=== PATIENT | female | born 1970 | race African-American/Black ===

== ENCOUNTER 2017-05-07 11:08 | Emergency (ER) | payer MEDICAID, OTHER ==
[~2017-05-07] VITALS: Ht 157.5 cm; Wt 59.0 kg
[2017-05-07 12:10] LABS: CHLORIDE 106 mEq/L (98-107)
[2017-05-07 12:16] LABS: CARBON DIOXIDE 26 mEq/L (21-32)
[2017-05-07 12:19] LABS: TROPONIN I < 0.02 ng/mL (0.00-0.04)
[2017-05-07 12:21] LABS: BASOPHILS % 1.5 % (0.0-2.0); EOSINOPHILS % 1.3 % (0.0-5.0); HEMATOCRIT. 35.6 % (36.0-48.0); HEMOGLOBIN. 11.8 g/dL (12.0-16.0); LYMPHOCYTES % 36.5 % (20.0-50.0); MEAN CORPUSCULAR VOLUME 96.6 fL (81.0-99.0); MEAN PLATELET VOLUME 8.6 fl (7.4-10.4); NEUTROPHILS % 51.7 % (40.0-76.0); PLATELET 319 x1000/uL (130-400); RED BLOOD CELL COUNT 3.68 mill/uL (4.2-5.4); RED CELL DISTRIBUTION WIDTH 15.4 % (11.6-14.6)
[2017-05-07 14:12] VITALS: BP 146/88
== END 2017-05-07 14:25 | disposition home or self-care (01) ==
LOC: ER 11:08
DX: R07.9 Chest pain, unspecified (principal); I10 Essential (primary) hypertension; E16.2 Hypoglycemia, unspecified; F12.10 Cannabis abuse, uncomplicated; F17.290 Nicotine dependence, other tobacco product, uncomplicated; Z90.710 Acquired absence of both cervix and uterus; Z98.51 Tubal ligation status
CPT/HCPCS: 36415; 71010; 80053; 84484; 85025; 93005; 99285

== ENCOUNTER 2020-04-12 16:44 | Emergency (ER) | payer MEDICAID ==
[~2020-04-12] VITALS: Ht 165.1 cm; Wt 50.0 kg
[2020-04-12] MEDS ORDERED: SODIUM CHLORIDE 0.9% 1,000 ML IV ONE (17:39)
[2020-04-12 18:33] LABS: BASOPHILS % 0.8 % (0.0-2.0); EOSINOPHILS % 0.3 % (0.0-5.0); HEMATOCRIT. 39.1 % (36.0-48.0); HEMOGLOBIN. 12.9 g/dL (12.0-16.0); LYMPHOCYTES % 16.7 % (20.0-50.0); MEAN CORPUSCULAR HEMOGLOBIN 33.9 pg (28.0-32.0); MEAN CORPUSCULAR VOLUME 102.6 fL (81.0-99.0); MEAN PLATELET VOLUME 8.8 fl (7.4-10.4); MONOCYTES % 9.2 % (2.0-8.0); PLATELET 387 x1000/uL (130-400); RED BLOOD CELL COUNT 3.81 mill/uL (4.2-5.4); RED CELL DISTRIBUTION WIDTH 21.1 % (11.6-14.6)
[2020-04-12 18:37] LABS: CLARITY URINE TURBID (CLEAR); COLOR URINE RED (YELLOW); KETONES URINE 1+ (NEGATIVE); LEUKOCYTE ESTERASE URINE 1+ (NEGATIVE); NITRITE URINE POSITIVE (NEGATIVE); OCCULT BLOOD URINE NEGATIVE (NEGATIVE); PROTEIN URINE 1+ (NEGATIVE); SPECIFIC GRAVITY URINE 1.023 (1.005-1.030)
[2020-04-12 18:44] LABS: CHLORIDE 94 mEq/L (98-107)
[2020-04-12] MEDS ORDERED: CEFTRIAXONE 1 G PREMIX 50 ML IV ONE (18:45)
[2020-04-12 18:48] LABS: PROTHROMBIN TIME 10.5 sec (9.6-11.0)
[2020-04-12 19:44] VITALS: BP 129/97
== END 2020-04-12 20:29 | disposition left against medical advice (07) ==
LOC: ER 16:44 → CANBEDREQ 20:52
DX: N17.9 Acute kidney failure, unspecified (principal); N39.0 Urinary tract infection, site not specified; I10 Essential (primary) hypertension; Z90.710 Acquired absence of both cervix and uterus; Z98.51 Tubal ligation status
CPT/HCPCS: 36415; 71045; 80053; 81003; 83690; 83880; 84484; 85025; 85610; 96361; 96365; 99284; J0696; J7030

== ENCOUNTER 2020-04-13 17:47 | Inpatient (IN) | payer MEDICAID ==
[~2020-04-13] VITALS: Ht 154.9 cm; Wt 52.6 kg
[2020-04-13] MEDS ORDERED: SODIUM CHLORIDE 0.9% 1,000 ML IV ONE (18:52)
[2020-04-13 19:23] LABS: BASOPHILS % 0.6 % (0.0-2.0); EOSINOPHILS % 0.7 % (0.0-5.0); HEMATOCRIT. 32.1 % (36.0-48.0); HEMOGLOBIN. 10.8 g/dL (12.0-16.0); LYMPHOCYTES % 11.6 % (20.0-50.0); MEAN CORPUSCULAR HEMOGLOBIN 34.8 pg (28.0-32.0); MEAN PLATELET VOLUME 9.1 fl (7.4-10.4); MONOCYTES % 10.8 % (2.0-8.0); NEUTROPHILS % 76.3 % (40.0-76.0); PLATELET 350 x1000/uL (130-400); RED BLOOD CELL COUNT 3.09 mill/uL (4.2-5.4); RED CELL DISTRIBUTION WIDTH 20.8 % (11.6-14.6)
[2020-04-13 19:29] LABS: CHLORIDE 96 mEq/L (98-107)
[2020-04-13] MEDS ORDERED: CEFTRIAXONE 1 G PREMIX 50 ML IV SCH (20:00)
[2020-04-13] MEDS ORDERED: HYDROCODONE/ACETAMINOPHEN 5/325MG TABLET PO PRN (20:00)
[2020-04-13] MEDS ORDERED: CEFTRIAXONE 1 G PREMIX 50 ML IV ONE (20:00)
[2020-04-13] MEDS ORDERED: ONDANSETRON HCL 4MG/2ML INJ IV PRN (20:00)
[2020-04-13] MEDS ORDERED: ACETAMINOPHEN 325MG TABLET PO PRN (20:00)
[2020-04-13] MEDS ORDERED: IPRATROPIUM/ALBUTEROL 0.5-3(2.5)MG/3ML NEB NEB PRN (20:00)
[2020-04-13] MEDS ORDERED: CLONIDINE 0.1MG TABLET PO PRN (20:00)
[2020-04-13 21:09] LABS: CLARITY URINE CLOUDY (CLEAR); COLOR URINE DK YELLOW (YELLOW); KETONES URINE TRACE (NEGATIVE); LEUKOCYTE ESTERASE URINE NEGATIVE (NEGATIVE); NITRITE URINE NEGATIVE (NEGATIVE); OCCULT BLOOD URINE NEGATIVE (NEGATIVE); PROTEIN URINE 1+ (NEGATIVE); SPECIFIC GRAVITY URINE 1.018 (1.005-1.030)
[2020-04-13 21:20] LABS: *AMPHETAMINES SCREEN URINE NEGATIVE (NEGATIVE); *BARBITURATES SCREEN URINE NEGATIVE (NEGATIVE)
[2020-04-13 21:21] LABS: *BENZODIAZEPINES SCREEN URINE NEGATIVE (NEGATIVE); *COCAINE SCREEN URINE NEGATIVE (NEGATIVE); CANNABINOID URINE SCREEN PRESUMTIVE POSITIVE (NEGATIVE); METHADONE URINE SCREEN NEGATIVE (NEGATIVE); OPIATES URINE SCREEN NEGATIVE (NEGATIVE); PHENCYCLIDINE URINE SCREEN NEGATIVE (NEGATIVE)
[2020-04-13 23:01] VITALS: BP 138/55
[2020-04-13 23:48] VITALS: BP 138/85
[2020-04-14 00:35] LABS: CHLORIDE 99 mEq/L (98-107)
[2020-04-14 00:38] LABS: ETHANOL BLOOD < 10 mg/dL
[2020-04-14 00:43] LABS: CREATINE KINASE 60 IU/L (26-192)
[2020-04-14 00:45] LABS: CREATINE KINASE MB FRACTION 5.1 ng/mL (0.5-3.6)
[2020-04-14] MEDS: SODIUM CHLORIDE 0.9% 1,000 ML IV SCH ×3 (01:13→21:25)
[2020-04-14] MEDS: HEPARIN 5000 UNITS/ML VIAL SUBCUT SCH ×3 (01:21→20:59)
[2020-04-14 01:42] LABS: HEPATITIS B SURFACE ANTIGEN NEGATIVE
[2020-04-14 01:44] LABS: VITAMIN B12 SERUM 1407 pg/mL (211-911)
[2020-04-14 02:11] LABS: HEPATITIS A AB IGM NEGATIVE (NEGATIVE)
[2020-04-14 04:00] VITALS: BP 108/78
[2020-04-14] MEDS ORDERED: CYAN-33 PO (04:10)
[2020-04-14] MEDS ORDERED: FERR324T17 GT (04:10)
[2020-04-14] MEDS ORDERED: ASPI-1497 PO (04:10)
[2020-04-14] MEDS ORDERED: FOLI0.4T2 MT (04:10)
[2020-04-14] MEDS ORDERED: DOCU100T PO (04:10)
[2020-04-14] MEDS ORDERED: CALC-61 MT (04:10)
[2020-04-14] MEDS ORDERED: BENA10TA74 PO (04:10)
[2020-04-14 07:04] LABS: BASOPHILS % 0.9 % (0.0-2.0); EOSINOPHILS % 1.1 % (0.0-5.0); HEMATOCRIT. 28.9 % (36.0-48.0); HEMOGLOBIN. 9.6 g/dL (12.0-16.0); LYMPHOCYTES % 18.5 % (20.0-50.0); MEAN CORPUSCULAR HEMOGLOBIN 34.4 pg (28.0-32.0); MEAN CORPUSCULAR VOLUME 103.8 fL (81.0-99.0); MONOCYTES % 14.6 % (2.0-8.0); NEUTROPHILS % 64.9 % (40.0-76.0); PLATELET 295 x1000/uL (130-400); RED BLOOD CELL COUNT 2.78 mill/uL (4.2-5.4)
[2020-04-14 07:25] LABS: LDL CHOLESTEROL 42 mg/dL (5-100)
[2020-04-14 07:26] LABS: CREATINE KINASE 52 IU/L (26-192)
[2020-04-14 07:27] LABS: HDL CHOLESTEROL 92 mg/dL (40-59)
[2020-04-14 07:29] LABS: CREATINE KINASE MB FRACTION 3.9 ng/mL (0.5-3.6)
[2020-04-14 07:32] VITALS: BP 113/61
[2020-04-14] MEDS: MULTIVITAMINS,THER W-MINERALS TABLET PO SCH (08:46)
[2020-04-14] MEDS: THIAMINE HCL 100MG TABLET PO SCH (08:46)
[2020-04-14] MEDS: FOLIC ACID 1MG TABLET PO SCH (08:47)
[2020-04-14 11:38] VITALS: BP 129/67
[2020-04-14] MEDS ORDERED: CEFTRIAXONE 1,000 MG in DEXTROSE 5% WATER 50 ML IV SCH ×4 (14:00)
[2020-04-14 16:00] VITALS: BP 102/57
[2020-04-14] MEDS ORDERED: POTASSIUM CHLORIDE 20MEQ TABLET SR PO NR (16:58)
[2020-04-14 20:00] VITALS: BP 118/66
[2020-04-15] VITALS: BP 101/71
[2020-04-15 04:00] VITALS: BP 103/64
[2020-04-15 07:19] LABS: BASOPHILS % 0.9 % (0.0-2.0); EOSINOPHILS % 2.4 % (0.0-5.0); HEMATOCRIT. 28.9 % (36.0-48.0); HEMOGLOBIN. 9.3 g/dL (12.0-16.0); LYMPHOCYTES % 21.1 % (20.0-50.0); MEAN CORPUSCULAR HEMOGLOBIN 33.8 pg (28.0-32.0); MEAN CORPUSCULAR VOLUME 104.8 fL (81.0-99.0); MEAN PLATELET VOLUME 8.9 fl (7.4-10.4); MONOCYTES % 14.5 % (2.0-8.0); NEUTROPHILS % 61.1 % (40.0-76.0); PLATELET 326 x1000/uL (130-400); RED BLOOD CELL COUNT 2.76 mill/uL (4.2-5.4); RED CELL DISTRIBUTION WIDTH 20.7 % (11.6-14.6)
[2020-04-15 07:37] LABS: CHLORIDE 107 mEq/L (98-107)
[2020-04-15 07:45] LABS: PHOSPHORUS 2.9 mg/dL (2.5-4.9); TOTAL IRON BINDING CAPACITY 298 ug/dL (250-450)
[2020-04-15 07:47] LABS: CREATINE KINASE 35 IU/L (26-192)
[2020-04-15 08:00] VITALS: BP 145/88
[2020-04-15] MEDS: MULTIVITAMINS,THER W-MINERALS TABLET PO SCH (08:51)
[2020-04-15] MEDS: THIAMINE HCL 100MG TABLET PO SCH (08:51)
[2020-04-15] MEDS: FOLIC ACID 1MG TABLET PO SCH (08:51)
[2020-04-15] MEDS: HEPARIN 5000 UNITS/ML VIAL SUBCUT SCH ×2 (08:52→08:57)
[2020-04-15 12:00] VITALS: BP 143/86
[2020-04-15] MEDS: SODIUM CHLORIDE 0.9% 1,000 ML IV SCH (12:00)
[2020-04-15] MEDS ORDERED: IRON SUCROSE COMPLEX 100 MG/5 ML ML IV SCH (14:00)
[2020-04-15 15:00] VITALS: BP 131/80
[2020-04-16 05:09] LABS: HIV SCREEN 4G Non Reactive (Non Reactive)
== END 2020-04-15 15:40 | disposition home or self-care (01) | DRG 425 ==
LOC: ER 17:47 → 5WST 20:00 → EDBEDREQTM 20:03 → EDBEDREQ 20:03 → ENRESERV 22:01
PROVIDERS: ADMIT Internal Medicine; ATTEND Internal Medicine
DX: E87.6 Hypokalemia (principal); E87.1 Hypo-osmolality and hyponatremia; N17.0 Acute kidney failure with tubular necrosis; K44.9 Diaphragmatic hernia without obstruction or gangrene; Z90.710 Acquired absence of both cervix and uterus; D53.9 Nutritional anemia, unspecified; E27.9 Disorder of adrenal gland, unspecified; E87.2 Acidosis; I10 Essential (primary) hypertension; R74.0 Nonspecific elevation of levels of transaminase and lactic acid dehydrogenase [LDH]; K76.9 Liver disease, unspecified; D35.02 Benign neoplasm of left adrenal gland; Z79.899 Other long term (current) drug therapy; Z82.49 Family history of ischemic heart disease and other diseases of the circulatory system
CPT/HCPCS: 36415; 71045; 74176; 76770; 80048; 80053; 80061; 80305; 80320; 81003; 82550; 82553; 82607; 82728; 82746; 83540; 83550; 83735; 84100; 84443; 84484; 85025; 86705; 86709; 86803; 87340; 87389; 93005; 96365; 99285; J0696; J1644; J7030; J7060; G0480

== ENCOUNTER 2021-12-29 21:53 | Emergency (ER) | payer MEDICAID, OTHER ==
[~2021-12-29] VITALS: Ht 165.1 cm; Wt 63.0 kg
[~2021-12-29 21:53] MED LIST: ASPI-1497 PO; CYAN-33 PO; DOCU100T PO; FERR324T17 GT; FOLI0.4T6 MT; [UNRECOGNIZED DRUG - CODE] MT
[2021-12-29] MEDS ORDERED: ACETAMINOPHEN 325MG TABLET PO ONE (23:45)
[2021-12-30] MEDS ORDERED: TOPUD MT (01:12)
[2021-12-30 01:35] VITALS: BP 156/95
== END 2021-12-30 01:37 | disposition home or self-care (01) ==
LOC: ER 21:53
DX: S09.8XXA Other specified injuries of head, initial encounter (principal); F07.81 Postconcussional syndrome; I10 Essential (primary) hypertension; Z79.899 Other long term (current) drug therapy; W18.39XA Other fall on same level, initial encounter; Y93.89 Activity, other specified; Y92.89 Other specified places as the place of occurrence of the external cause; Y99.8 Other external cause status
CPT/HCPCS: 99284

== ENCOUNTER 2022-09-12 12:47 | Emergency (ER) | payer MEDICAID, OTHER ==
[~2022-09-12] VITALS: Ht 157.5 cm; Wt 50.0 kg
[~2022-09-12 12:47] MED LIST changes: +TOPUD MT
[2022-09-12] MEDS ORDERED: SODIUM CHLORIDE 0.9% 1,000 ML IV ONE ×2 (13:00→15:00)
[2022-09-12 14:26] LABS: BASOPHILS % 0.7 % (0.0-2.0); HEMATOCRIT. 23.5 % (36.0-48.0); LYMPHOCYTES % 12.3 % (20.0-50.0); MEAN CORPUSCULAR HEMOGLOBIN 30.5 pg (28.0-32.0); MEAN CORPUSCULAR VOLUME 89.3 fL (81.0-99.0); MEAN PLATELET VOLUME 8.9 fl (7.4-10.4); MONOCYTES % 7.1 % (2.0-8.0); NEUTROPHILS % 79.9 % (40.0-76.0); PLATELET 339 x1000/uL (130-400); RED BLOOD CELL COUNT 2.63 mill/uL (4.2-5.4); RED CELL DISTRIBUTION WIDTH 17.3 % (11.6-14.6)
[2022-09-12 14:39] LABS: CHLORIDE 66 mEq/L (98-107)
[2022-09-12 14:48] LABS: ETHANOL BLOOD < 10 mg/dL
[2022-09-12 16:52] VITALS: BP 135/65
== END 2022-09-12 17:03 | disposition short-term general hospital (02) ==
LOC: ER 12:59
DX: R55 Syncope and collapse (principal); E87.1 Hypo-osmolality and hyponatremia; R00.0 Tachycardia, unspecified; I45.81 Long QT syndrome
CPT/HCPCS: 36415; 71045; 80053; 80320; 83690; 85025; 93005; 96360; 96361; 99291; J7030; Z7610; G0480

== ENCOUNTER 2022-10-19 07:14 | Emergency (ER) | payer OTHER ==
[~2022-10-19] VITALS: Ht 165.1 cm; Wt 50.0 kg
[2022-10-19] MEDS ORDERED: ONDANSETRON HCL 4MG/2ML INJ IV SCH (09:48)
[2022-10-19] MEDS ORDERED: MORPHINE SULFATE 4 MG/ML CPJ (NOT FOR IM USE) IV NR (10:00)
[2022-10-19] MEDS: SODIUM CHLORIDE 0.9% 1,000 ML IV SCH ×2 (10:00→13:22)
[2022-10-19] MEDS ORDERED: PANTOPRAZOLE SODIUM 40 MG/VIAL IV ONE (10:45)
[2022-10-19 11:11] LABS: BASOPHILS % 0.4 % (0.0-2.0); EOSINOPHILS % 0.1 % (0.0-5.0); HEMATOCRIT. 38.1 % (36.0-48.0); HEMOGLOBIN. 12.6 g/dL (12.0-16.0); MEAN CORPUSCULAR HEMOGLOBIN 29.9 pg (28.0-32.0); MEAN CORPUSCULAR VOLUME 90.7 fL (81.0-99.0); MEAN PLATELET VOLUME 8.2 fl (7.4-10.4); MONOCYTES % 8.1 % (2.0-8.0); NEUTROPHILS % 80.4 % (40.0-76.0); PLATELET 416 x1000/uL (130-400); RED CELL DISTRIBUTION WIDTH 16.7 % (11.6-14.6)
[2022-10-19 11:20] LABS: CHLORIDE 82 mEq/L (98-107)
[2022-10-19] MEDS ORDERED: SODIUM CHLORIDE 0.9% 1,000 ML IV ONE (14:30)
[2022-10-19 18:39] VITALS: BP 96/59
== END 2022-10-19 18:30 | disposition short-term general hospital (02) ==
LOC: ER 07:14
DX: N17.9 Acute kidney failure, unspecified (principal); E87.1 Hypo-osmolality and hyponatremia; Z20.822 Contact with and (suspected) exposure to COVID-19; Z91.81 History of falling
CPT/HCPCS: 36415; 80053; 83605; 85025; 87426; 93005; 96361; 96374; 96375; 99284; C9803; J2270; J2405; Z7610

== ENCOUNTER 2024-08-15 13:52 | Emergency (ER) | payer OTHER ==
[~2024-08-15] VITALS: Ht 165.1 cm; Wt 49.0 kg
[2024-08-15 13:56] VITALS: O2SAT 98
[2024-08-15 14:35] LABS: BASOPHILS % 0.3 % (0.0-2.0); EOSINOPHILS % 0.1 % (0.0-5.0); HEMATOCRIT. 32.5 % (36.0-48.0); HEMOGLOBIN. 10.2 g/dL (12.0-16.0); LYMPHOCYTES % 8.8 % (20.0-50.0); MEAN CORPUSCULAR HEMOGLOBIN 29.8 pg (28.0-32.0); MEAN CORPUSCULAR HGB CONC 31.3 g/dL (31.0-37.0); MEAN CORPUSCULAR VOLUME 95.2 fL (81.0-99.0); MEAN PLATELET VOLUME 8.9 fl (7.4-10.4); MONOCYTES % 9.9 % (2.0-8.0); NEUTROPHILS % 80.9 % (40.0-76.0); PLATELET 458 x1000/uL (130-400); RED BLOOD CELL COUNT 3.41 mill/uL (4.2-5.4); RED CELL DISTRIBUTION WIDTH 19.6 % (11.6-14.6); WHITE BLOOD COUNT 9.4 x1000/uL (4.5-11.0)
[2024-08-15] MEDS: METOCLOPRAMIDE HCL 10MG/2ML VIAL IV ONE (14:37)
[2024-08-15] MEDS: LACTATED RINGERS 1,000 ML IV SCH (14:37)
[2024-08-15] MEDS: KETOROLAC 15MG/ML VIAL IV ONE (14:37)
[2024-08-15 14:41] LABS: CARBON DIOXIDE 13 mEq/L (21-32); CHLORIDE 94 mEq/L (98-107); POTASSIUM 4.3 mEq/L (3.5-5.1); SODIUM 126 mEq/L (136-145)
[2024-08-15 14:47] LABS: GLUCOSE 127 mg/dL (70-105); UREA NITROGEN BLOOD 39 mg/dL (9-23)
[2024-08-15 14:48] LABS: ALANINE AMINOTRANSFERASE 10 IU/L (10-49); ALBUMIN 4.6 g/dL (3.2-4.8); ASPARTATE AMINOTRANSFERASE 45 IU/L (<34)
[2024-08-15 14:49] LABS: BILIRUBIN TOTAL 0.2 mg/dL (0.1-1.0); LACTIC ACID 2.8 mmol/L (0.4-2.0); PROTEIN TOTAL 9.2 g/dL (6.0-8.3)
[2024-08-15 14:59] LABS: CREATININE 5.1 mg/dL (0.6-1.0)
[2024-08-15] MEDS: CEFTRIAXONE 1GM/50ML 50 ML IV ONE (17:33)
[2024-08-15] MEDS ORDERED: ONDANSETRON HCL 4MG/2ML INJ IV ONE (20:45)
[2024-08-15 22:50] VITALS: BP 138/78; PULSE 97; RESP 22; O2SAT 97
== END 2024-08-15 23:33 | disposition short-term general hospital (02) ==
LOC: ER 13:59 → CANBEDREQ 17:48 → ER 23:33
DX: N17.9 Acute kidney failure, unspecified (principal); E87.1 Hypo-osmolality and hyponatremia; R11.10 Vomiting, unspecified; I95.9 Hypotension, unspecified; I10 Essential (primary) hypertension
CPT/HCPCS: 99291; 96365; 96366; 96375; 96361; 80053; 82962; 83605; 83690; 83735; 84100; 85025; 87040; 36415; 84145; 71045; 93005; J0696; J1885; J2765

== ENCOUNTER 2024-12-01 15:01 | Emergency (ER) | payer OTHER ==
[~2024-12-01] VITALS: Ht 157.5 cm; Wt 53.0 kg
[~2024-12-01 15:01] MED LIST changes: -ASPI-1497 PO; +PANT40VI IV; +SUCR1TAB PO; +THIA100T72 PO
[2024-12-01 15:08] VITALS: O2SAT 98
[2024-12-01 15:10] VITALS: BP 180/94; PULSE 97; RESP 18; TEMP 36.9; O2SAT 100
[2024-12-01 15:41] LABS: BASOPHILS % 2.5 % (0.0-2.0); EOSINOPHILS % 1.3 % (0.0-5.0); HEMATOCRIT. 32.7 % (36.0-48.0); HEMOGLOBIN. 10.5 g/dL (12.0-16.0); LYMPHOCYTES % 25.3 % (20.0-50.0); MEAN CORPUSCULAR HEMOGLOBIN 27.8 pg (28.0-32.0); MEAN CORPUSCULAR HGB CONC 31.9 g/dL (31.0-37.0); MEAN CORPUSCULAR VOLUME 86.9 fL (81.0-99.0); MEAN PLATELET VOLUME 7.3 fl (7.4-10.4); NEUTROPHILS % 64.9 % (40.0-76.0); PLATELET 393 x1000/uL (130-400); RED BLOOD CELL COUNT 3.77 mill/uL (4.2-5.4); RED CELL DISTRIBUTION WIDTH 17.7 % (11.6-14.6); WHITE BLOOD COUNT 5.1 x1000/uL (4.5-11.0)
[2024-12-01 15:47] LABS: CARBON DIOXIDE 16 mEq/L (21-32); CHLORIDE 104 mEq/L (98-107); POTASSIUM 5.1 mEq/L (3.5-5.1); SODIUM 129 mEq/L (136-145)
[2024-12-01 15:48] LABS: CALCIUM 9.5 mg/dL (8.7-10.4)
[2024-12-01 15:53] LABS: GLUCOSE 72 mg/dL (70-105); UREA NITROGEN BLOOD 21 mg/dL (9-23)
== END 2024-12-01 17:41 | disposition home or self-care (01) ==
LOC: ER 15:01
DX: I12.0 Hypertensive chronic kidney disease with stage 5 chronic kidney disease or end stage renal disease (principal); N18.6 End stage renal disease; Z91.158 Patient's noncompliance with renal dialysis for other reason; Z79.899 Other long term (current) drug therapy; Z99.2 Dependence on renal dialysis
CPT/HCPCS: 36415; 71045; 80048; 85025; 93005; 99285

== ENCOUNTER 2024-12-08 15:49 | Emergency (ER) | payer OTHER ==
[~2024-12-08] VITALS: Ht 157.5 cm; Wt 52.1 kg
[2024-12-08 15:53] VITALS: O2SAT 100
[2024-12-08 16:41] LABS: BASOPHILS % 1.2 % (0.0-2.0); EOSINOPHILS % 0.9 % (0.0-5.0); HEMATOCRIT. 32.1 % (36.0-48.0); HEMOGLOBIN. 10.2 g/dL (12.0-16.0); LYMPHOCYTES % 16.1 % (20.0-50.0); MEAN CORPUSCULAR HEMOGLOBIN 27.8 pg (28.0-32.0); MEAN CORPUSCULAR HGB CONC 31.9 g/dL (31.0-37.0); MEAN CORPUSCULAR VOLUME 87.2 fL (81.0-99.0); MEAN PLATELET VOLUME 7.7 fl (7.4-10.4); MONOCYTES % 9.1 % (2.0-8.0); NEUTROPHILS % 72.7 % (40.0-76.0); PLATELET 363 x1000/uL (130-400); RED BLOOD CELL COUNT 3.69 mill/uL (4.2-5.4); RED CELL DISTRIBUTION WIDTH 18.2 % (11.6-14.6); WHITE BLOOD COUNT 5.9 x1000/uL (4.5-11.0)
[2024-12-08 17:09] LABS: CALCIUM 9.2 mg/dL (8.7-10.4); CHLORIDE 107 mEq/L (98-107); POTASSIUM 4.4 mEq/L (3.5-5.1); SODIUM 132 mEq/L (136-145)
[2024-12-08 17:10] LABS: CARBON DIOXIDE 18 mEq/L (21-32)
[2024-12-08 17:15] LABS: CREATININE 1.1 mg/dL (0.6-1.0); GLUCOSE 145 mg/dL (70-105); UREA NITROGEN BLOOD 19 mg/dL (9-23)
[2024-12-08 18:46] VITALS: BP 186/96; PULSE 99; RESP 14; TEMP 36.8; O2SAT 98
== END 2024-12-08 19:10 | disposition home or self-care (01) ==
LOC: ER 15:49
DX: I12.0 Hypertensive chronic kidney disease with stage 5 chronic kidney disease or end stage renal disease (principal); N18.6 End stage renal disease; F12.10 Cannabis abuse, uncomplicated; Z99.2 Dependence on renal dialysis; Z91.158 Patient's noncompliance with renal dialysis for other reason; Z79.899 Other long term (current) drug therapy
CPT/HCPCS: 36415; 80048; 85025; 93005; 99284

== ENCOUNTER 2025-03-14 07:29 | Emergency (ER) | payer OTHER ==
[~2025-03-14] VITALS: Ht 162.6 cm; Wt 50.0 kg
[2025-03-14 07:33] VITALS: TEMP 37; O2SAT 99
[2025-03-14 08:23] LABS: BASOPHILS % 0.9 % (0.0-2.0); EOSINOPHILS % 2.7 % (0.0-5.0); HEMATOCRIT. 27.4 % (36.0-48.0); HEMOGLOBIN. 8.7 g/dL (12.0-16.0); LYMPHOCYTES % 44.7 % (20.0-50.0); MEAN PLATELET VOLUME 6.7 fl (7.4-10.4); MONOCYTES % 8.1 % (2.0-8.0); NEUTROPHILS % 43.6 % (40.0-76.0); PLATELET 562 x1000/uL (130-400); RED BLOOD CELL COUNT 2.91 mill/uL (4.2-5.4); RED CELL DISTRIBUTION WIDTH 17.1 % (11.6-14.6)
[2025-03-14 08:39] LABS: CREATININE 1.0 mg/dL (0.6-1.0); UREA NITROGEN BLOOD 14 mg/dL (9-23)
[2025-03-14 08:41] VITALS: TEMP 98.6
[2025-03-14 08:48] LABS: ETHANOL BLOOD 287 mg/dL (<10)
[2025-03-14 10:12] LABS: *AMPHETAMINES SCREEN URINE NEGATIVE (NEGATIVE); *BARBITURATES SCREEN URINE NEGATIVE (NEGATIVE); *BENZODIAZEPINES SCREEN URINE NEGATIVE (NEGATIVE); *COCAINE SCREEN URINE NEGATIVE (NEGATIVE); CANNABINOID URINE SCREEN PRESUMPTIVE POSITIVE (NEGATIVE); ECSTASY MDMA SCREEN URINE NEGATIVE (NEGATIVE); METHADONE URINE SCREEN NEGATIVE (NEGATIVE); OPIATES URINE SCREEN NEGATIVE (NEGATIVE); PHENCYCLIDINE URINE SCREEN NEGATIVE (NEGATIVE)
[2025-03-14] MEDS ORDERED: MORPHINE SULFATE 2 MG/ML INJ (NOT FOR IM USE) IV PRN (10:45)
[2025-03-14] MEDS ORDERED: IPRATROPIUM/ALBUTEROL 0.5-3(2.5)MG/3ML NEB NEB PRN (10:45)
[2025-03-14] MEDS ORDERED: ONDANSETRON HCL 4MG/2ML INJ IV PRN (10:45)
[2025-03-14] MEDS ORDERED: MAGNESIUM/ALUMINUM HYDROXIDE/SIMETHICONE 30ML UDC PO PRN (10:45)
[2025-03-14] MEDS ORDERED: ACETAMINOPHEN 325MG TABLET PO PRN (10:45)
[2025-03-14] MEDS ORDERED: HYDROCODONE/ACETAMINOPHEN 5/325MG TABLET PO PRN (10:45)
[2025-03-14] MEDS ORDERED: SODIUM CHLORIDE 0.9% 1,000 ML IV SCH (10:45)
[2025-03-14] MEDS ORDERED: CLONIDINE 0.1MG TABLET PO PRN (10:45)
[2025-03-14 10:50] VITALS: BP 120/77; PULSE 91; RESP 16; O2SAT 99
[2025-03-14] MEDS ORDERED: NALOXONE HCL 0.4MG/ML VIAL IV PRN (11:00)
[2025-03-14] MEDS ORDERED: ENOXAPARIN 40MG/0.4ML SYR SUBCUT SCH (11:00)
[2025-03-14] MEDS ORDERED: MVI, ADULT NO.1 10 ML, FOLIC ACID 1 MG, THIAMINE HCL 100 MG in SODIUM CHLORIDE 0.9% 1,0... IV SCH (12:00)
[2025-03-14] MEDS ORDERED: CHLORDIAZEPOXIDE 25MG CAPSULE PO SCH (14:00)
[2025-03-14] MEDS ORDERED: ZOLPIDEM TARTRATE 5MG TABLET PO PRN (21:00)
[2025-03-15] MEDS ORDERED: PANTOPRAZOLE SODIUM 40 MG/VIAL IV SCH (09:00)
[2025-03-15 13:21] LABS: CLARITY URINE CLEAR (CLEAR); COLOR URINE YELLOW (YELLOW); GLUCOSE URINE NEGATIVE (NEGATIVE); KETONES URINE NEGATIVE (NEGATIVE); LEUKOCYTE ESTERASE URINE NEGATIVE (NEGATIVE); NITRITE URINE NEGATIVE (NEGATIVE); OCCULT BLOOD URINE NEGATIVE (NEGATIVE); PH URINE 5.5 (4.5-8.0); PROTEIN URINE NEGATIVE (NEGATIVE); SPECIFIC GRAVITY URINE 1.004 (1.005-1.030); UROBILINOGEN URINE 0.2 E.U./dL (0.2-1.0)
== END 2025-03-14 10:24 | disposition short-term general hospital (02) ==
LOC: ER 07:29 → CANBEDREQ 09:33 → ER 10:24
DX: G93.40 Encephalopathy, unspecified (principal); R51.9 Headache, unspecified; I10 Essential (primary) hypertension; E78.00 Pure hypercholesterolemia, unspecified; Z79.899 Other long term (current) drug therapy
CPT/HCPCS: 36415; 71045; 80048; 80305; 80320; 81003; 85025; 99285; J3411; J3490; J7030; G0480